=== PATIENT | male | born 1990 | race Two or more races ===

== ENCOUNTER → 2025-02-18 | Outpatient (CLI) | payer MEDICAID, SELFPAY ==
--- NOTE | 2025-02-18 09:26 | XR_ITS ---
Examination: Esophagram standard Fluoroscopy Upright PA chest single view Upright soft tissue lateral neck single view 20 spot fluoroscopic films of the esophagus Exam date and time: February 18, 2025 1008 hours INDICATIONS: Heartburn reflux 3 months TECHNIQUE AND FINDINGS: Upright PA chest single view demonstrates normal heart size, lungs are clear Soft tissue lateral neck demonstrates normal epiglottis Patient swallowed thin barium with 20 spot fluoroscopic films of the esophagus Primary peristaltic esophageal waves are noted There is moderate intermittent gastroesophageal reflux There is no stricture at the gastroesophageal junction No esophageal filling defect noted IMPRESSION: Moderate intermittent gastroesophageal reflux Fluoroscopy 0.3 minute radiation dose 38.25 milligray, 20 spot fluoroscopic films of the esophagus
== END | disposition home or self-care (01) ==
LOC: CDIM 09:15 → SDIM 09:15
PROVIDERS: PCP Family Medicine; Referring Provider Family Medicine; Visit Provider Family Medicine
DX: K21.9 Gastro-esophageal reflux disease without esophagitis (principal)
CPT/HCPCS: 74220; A4699